=== PATIENT | female | born 1965 | race Caucasian/White ===

== ENCOUNTER 2022-04-14 15:17 | Emergency (ER) | payer OTHER ==
[~2022-04-14] VITALS: Ht 160 cm; Wt 66.7 kg
[~2022-04-14 15:17] MED LIST: AMOX500C25 PO; LORA10OD44 PO; OMEP-303 PO; SIMV-372 PO; [UNRECOGNIZED DRUG - CODE] PO
[2022-04-14 15:33] VITALS: BP 144/95
--- NOTE | 2022-04-14 15:42 | NUR ---
BIB SELF C/O LEFT CHEST, LEFT KNEE PAIN , LEFT FACE, LEFT HEAD PAIN X YESTERDAY. PMH: SJOGREN SYNDROME, FIBROMYALGIA
--- NOTE | 2022-04-14 18:45 | NUR ---
Pt ambulated to bed 11 at this time
[2022-04-14] MEDS ORDERED: KETOROLAC 60 MG/2 ML VIAL IM ONE (18:55)
--- NOTE | 2022-04-14 19:07 | NUR ---
Urine dipped and results shown to Dr Caceres.
--- NOTE | 2022-04-14 19:16 | NUR ---
Pt report given to JULIET Egan. Transfer of care at this time.
[2022-04-14] MEDS ORDERED: ATA25 PO (19:19)
[2022-04-14 19:31] VITALS: BP 133/64
--- NOTE | 2022-04-14 19:31 | NUR ---
d/c with [facility]. d/c education given. opportunity to ask questions given and answered. rx of atarax given.
== END 2022-04-14 19:31 | disposition home or self-care (01) ==
LOC: MED 15:17
DX: M79.18 Myalgia, other site (principal); F41.9 Anxiety disorder, unspecified; R07.89 Other chest pain; R51.9 Headache, unspecified; Z79.899 Other long term (current) drug therapy; Z79.2 Long term (current) use of antibiotics; Z88.6 Allergy status to analgesic agent
CPT/HCPCS: 81002; 81025; 96372; 99283; J1885